=== PATIENT | female | born 1930 | race Caucasian/White ===

== ENCOUNTER → 2016-11-15 | Outpatient (CLI) | payer MEDICARE, OTHER | LOC: US 08:51 | DX: N20.1 Calculus of ureter (principal) | CPT/HCPCS: 74000 ==

== ENCOUNTER → 2016-12-22 | Outpatient (CLI) | payer MEDICARE, OTHER ==
[2016-12-22 10:27] LABS: HEMOGLOBIN 11.9 gm/dl (12.3-15.3); RED BLOOD COUNT 4.17 M/UL (4.00-5.10); WHITE BLOOD COUNT 7.5 K/UL (4.5-11.0)
== END ==
LOC: LAB 09:25
PROVIDERS: Emergency Medicine
DX: I82.592 Chronic embolism and thrombosis of other specified deep vein of left lower extremity (principal); I27.82 Chronic pulmonary embolism; I10 Essential (primary) hypertension; G40.89 Other seizures; R53.83 Other fatigue; E78.2 Mixed hyperlipidemia; Z88.6 Allergy status to analgesic agent; Z88.0 Allergy status to penicillin; Z79.899 Other long term (current) drug therapy; E55.9 Vitamin D deficiency, unspecified; N13.39 Other hydronephrosis; J43.9 Emphysema, unspecified
CPT/HCPCS: 36415; 71020; 80053; 84439; 84443; 84484; 85027; 85379; 85610; 93005

== ENCOUNTER → 2016-12-24 | Outpatient (CLI) | payer MEDICARE, OTHER | LOC: US 14:48 | DX: I73.89 Other specified peripheral vascular diseases (principal); Z88.6 Allergy status to analgesic agent; Z88.0 Allergy status to penicillin; R09.89 Other specified symptoms and signs involving the circulatory and respiratory systems | CPT/HCPCS: 93925; 93970 ==

== ENCOUNTER 2017-01-15 03:10 | Emergency (ER) | payer MEDICARE, OTHER ==
[2017-01-15 05:35] LABS: HEMOGLOBIN 11.7 gm/dl (12.3-15.3); RED BLOOD COUNT 4.08 M/UL (4.00-5.10); WHITE BLOOD COUNT 8.4 K/UL (4.5-11.0)
== END 2017-01-15 09:20 | disposition home or self-care (01) ==
LOC: ER1 03:10
PROVIDERS: Student in an Organized Health Care Education/Training Program
DX: N39.0 Urinary tract infection, site not specified (principal); N28.89 Other specified disorders of kidney and ureter; I10 Essential (primary) hypertension; K21.9 Gastro-esophageal reflux disease without esophagitis; E78.5 Hyperlipidemia, unspecified; Z85.528 Personal history of other malignant neoplasm of kidney; Z90.49 Acquired absence of other specified parts of digestive tract; Z88.0 Allergy status to penicillin; Z88.6 Allergy status to analgesic agent; Z79.01 Long term (current) use of anticoagulants; Z79.899 Other long term (current) drug therapy
CPT/HCPCS: 36415; 80053; 81001; 83605; 83690; 85025; 85610; 85730; 87086; 96374; 96375; 99284; J2270; J2405; J7030